=== PATIENT | female | born 1975 | race Caucasian/White ===

== ENCOUNTER 2019-06-15 12:25 | Emergency (ER) | payer MEDICAID ==
[~2019-06-15] VITALS: Ht 154.9 cm; Wt 64.4 kg
[2019-06-15 12:51] VITALS: Ht 154.9 cm; Wt 64.4 kg
[2019-06-15] MEDS ORDERED: MAGNESIUM1.75 GM/30 PO (14:18)
[2019-06-15] MEDS ORDERED: BEN20 PO (14:19)
[2019-06-15] MEDS ORDERED: MINERAL OIL HEAV1 ML PO (14:20)
[2019-06-15 15:46] VITALS: BP 109/52
== END 2019-06-15 15:46 | disposition home or self-care (01) ==
LOC: ED 12:25
DX: K59.00 Constipation, unspecified (principal); E11.9 Type 2 diabetes mellitus without complications